=== PATIENT | female | born 1990 | race Two or more races ===

== ENCOUNTER 2023-05-09 11:08 | Emergency (ER) | payer MEDICAID, OTHER ==
[~2023-05-09] VITALS: Ht 157.5 cm; Wt 86.8 kg
[2023-05-09 12:28] VITALS: BP 105/60; PULSE 89; RESP 20; TEMP 97.1; O2SAT 99
[2023-05-09] MEDS ORDERED: CEFTRIAXONE SODIUM 2 GM in D5W 5% 100 ML IV ONE (13:45)
[2023-05-09] MEDS ORDERED: CLINDAMYCIN 600MG IV 50 ML IV ONE (13:45)
[2023-05-09] MEDS ORDERED: MUPI2CRE17 EX (16:57)
[2023-05-09] MEDS ORDERED: CIPR-173 PO (16:57)
== END 2023-05-09 17:07 | disposition home or self-care (01) ==
LOC: ER 11:08
DX: L08.89 Other specified local infections of the skin and subcutaneous tissue (principal)
CPT/HCPCS: 96365; 96367; 99284; J0696; J3490; J7060

== ENCOUNTER 2024-12-12 09:27 | Outpatient (CLI) | payer OTHER ==
[~2024-12-12 09:27] MED LIST: CIPR-173 PO; MUPI2CRE17 EX
== END 2024-12-12 17:00 | disposition home or self-care (01) ==
LOC: LAB 09:27
DX: Z01.84 Encounter for antibody response examination (principal)
CPT/HCPCS: 36415; 86706